=== PATIENT | female | born 1935 | race Caucasian/White ===

== ENCOUNTER 2016-05-28 12:07 | Emergency (ER) | payer MEDICARE, OTHER ==
[~2016-05-28] VITALS: Ht 149.9 cm; Wt 67.0 kg
[2016-05-28 12:51] VITALS: BP 197/89; PULSE 69; RESP 18; TEMP 97.8; O2SAT 96
--- NOTE | 2016-05-28 12:57 | PD ---
HPI Chief Complaint: Abnormal Results Time Seen by Provider: 12:40 Travel History International Travel<30 days: No Contact w/Intl Traveler<30days: No History of Present Illness HPI This is an 81-year-old female who presents to the emergency department having had a mechanical fall 2 days ago sent by her primary care physician for finding of lacunar infarcts in the basal ganglia on her CT of the head of indeterminate age. Patient reports that 2 days ago she hit her head and had a moderate severity headache which has since resolved.She's not had any difficulty walking or talking and has not had any new neurologic symptoms. She is receiving injections in her left eye and has had some black spots in her vision which she says is normal for her and are currently resolved. He has some chronic gait instability which she attributes to her macular degeneration. [facility] Past Medical History Narrative Medical htn, hypothyroidism Social History Tobacco Use: No Review of Systems Except as stated in HPI: all other systems reviewed are Neg Physical Exam Narrative GENERAL:Well appearing, no acute distress SKIN: Warm and dry. HEAD: Atraumatic. Normocephalic. EYES: Pupils equal and round. No injection or drainage. ENT: Moist mucous membranes NECK: Trachea midline. CARDIOVASCULAR: Regular rate and rhythm. No murmur appreciated. RESPIRATORY: Clear to auscultation. Breath sounds equal bilaterally. GASTROINTESTINAL: Abdomen soft, non-tender, nondistended. MUSCULOSKELETAL: No obvious deformities. NEUROLOGICAL: Awake and alert. No obvious cranial nerve deficits. No dysarthria or aphasia. No upper or lower extremity drift. No upper extremity ataxia. PSYCHIATRIC: Appropriate mood and affect; insight and judgment normal. Data Data Last Documented VS Vital Signs Date Time Temp Pulse Resp B/P Pulse Ox O2 Delivery O2 Flow Rate FiO2 05/28/16 12:51 97.8 69 18 197/89 96 MDM Medical Decision Making Medical Screen Exam Complete: Yes Emergency Medical Condition: Yes Differential Diagnosis Acute ischemic stroke, subacute stroke Narrative Course This is an 81-year-old female who presents to the emergency department having had a mechanical fall [address] findings of lacunar infarcts in the basal ganglia of indeterminate age. 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 She has no neurologic symptoms or neurologic deficit on exam. I don't think she warrants an emergency department or inpatient evaluation. I think she can safely be followed up as an outpatient with neurology as these findings appear chronic and she has no signs of an acute stroke. Diagnosis Primary Impression: Lacunar infarction Referrals: Lawrence Zamudio MD Patient Instructions: General Instructions Additional Instructions: If you develop severe worsening headache, persistent vomiting, numbness, weakness, difficulty walking or difficulty talking return to the emergency department immediately. Follow-up with an outpatient neurologist. Med/Other Pt SpecificInfo: No Change to Meds Disposition: 01 DISCHARGE HOME Condition: Stable Jacey Bertrand MD May 28, 2016 12:57
[2016-05-28] MEDS ORDERED: LEVO25TA4 PO (13:08)
[2016-05-28] MEDS ORDERED: VITA100064 PO (13:08)
[2016-05-28] MEDS ORDERED: ATEN50TA PO (13:08)
[2016-05-28] MEDS ORDERED: HYDR12.57 PO (13:08)
== END 2016-05-28 13:41 | disposition home or self-care (01) ==
LOC: PHED 12:07
DX: I63.9 Cerebral infarction, unspecified (principal); R51 Headache; H35.30 Unspecified macular degeneration; R26.89 Other abnormalities of gait and mobility; I10 Essential (primary) hypertension; E03.9 Hypothyroidism, unspecified; W19.XXXA Unspecified fall, initial encounter
CPT/HCPCS: 99283